=== PATIENT | male | born 1995 | race African-American/Black ===

== ENCOUNTER 2023-06-18 02:33 | Emergency (ER) | payer SELFPAY ==
[~2023-06-18] VITALS: Ht 182.9 cm; Wt 80.5 kg
[2023-06-18 02:42] VITALS: O2SAT 100
[2023-06-18] MEDS ORDERED: IBUP-2030 MT (06:38)
[2023-06-18 06:41] VITALS: TEMP 101.2
[2023-06-18] MEDS ORDERED: IBUPROFEN 800MG TABLET PO ONE (06:45)
[2023-06-18 06:55] VITALS: BP 131/72; PULSE 93; RESP 18
[2023-06-18] MEDS ORDERED: IBUPROFEN 400MG TABLET PO NR (07:00)
== END 2023-06-18 07:05 | disposition home or self-care (01) ==
LOC: ER 02:33
DX: B34.9 Viral infection, unspecified (principal); R50.9 Fever, unspecified
CPT/HCPCS: 99282